=== PATIENT | female | born 1980 | race Caucasian/White ===

== ENCOUNTER 2018-08-29 22:03 | Emergency (ER) | payer BC, OTHER ==
[~2018-08-29] VITALS: Ht 172.7 cm; Wt 149.7 kg
[~2018-08-29 22:03] MED LIST: METFORMIN HCL500 MG PO
[2018-08-29] MEDS ORDERED: DIAZEPAM 2 MG TAB PO ONE (22:30)
[2018-08-29] MEDS ORDERED: KETOROLAC TROMETHAMINE 60 MG/2 ML VIAL IM ONE (22:30)
[2018-08-29] MEDS ORDERED: KETOROLAC TROMETHAMINE 60 MG/2 ML VIAL ONE (22:49)
[2018-08-29] MEDS ORDERED: DIAZEPAM INJ 5 MG/ML 2 ML ONE (22:49)
== END 2018-08-29 23:49 | disposition home or self-care (01) ==
LOC: FSED 22:03
DX: M54.6 Pain in thoracic spine (principal); S29.012A Strain of muscle and tendon of back wall of thorax, initial encounter; G89.29 Other chronic pain; X50.1XXA Overexertion from prolonged static or awkward postures, initial encounter; Y92.003 Bedroom of unspecified non-institutional (private) residence as the place of occurrence of the external cause
CPT/HCPCS: 96372; 99282; J1885; J3360

== ENCOUNTER 2018-09-24 09:27 | Emergency (ER) | payer BC ==
[~2018-09-24] VITALS: Ht 172.7 cm; Wt 149.7 kg
[2018-09-24] MEDS ORDERED: HYDROCODONE/APAP 5MG-325MG TAB PO ONE (10:30)
--- NOTE | 2018-09-24 10:46 | Diagnostic Imaging Report ---
EXAMINATION: CT of the cervical spine HISTORY: Chronic severe neck pain radiating to the upper extremities with numbness, previous injury. COMPARISON: None available TECHNIQUE: Multidetector helical axial images were obtained without contrast from the foramen magnum to T1. The images were reconstructed using bone and soft tissue algorithms and were viewed in axial, sagittal and coronal planes. Dose modulation, iterative reconstruction, and/or weight based adjustment of the mA/kV was utilized to reduce the radiation dose to as low as reasonably achievable. FINDINGS: Alignment: Reversal of the cervical lordosis which may be related to muscle spasm or positional. Soft tissues: Normal Vertebrae: Normal height and density. No acute fracture, infection or neoplasm Degenerative changes: No significant degenerative changes, no disc herniations, no spinal canal or foraminal stenosis. IMPRESSION: 1. No acute cervical spine postraumatic abnormalities. 2. Reversal of the cervical lordosis as detailed above. Note: Acute postraumatic spinal cord, vascular or ligamentous injuries cannot adequately be assessed by CT. Signed by: Dr. Annabella Franco M.D. on 09/24/2018 10:43 AM
[2018-09-24] MEDS ORDERED: DIAZEPAM 5 MG TAB PO ONE (11:20)
[2018-09-24 11:32] VITALS: BP 146/81
== END 2018-09-24 12:06 | disposition home or self-care (01) ==
LOC: ER 09:27
DX: M54.2 Cervicalgia (principal); S16.1XXA Strain of muscle, fascia and tendon at neck level, initial encounter
CPT/HCPCS: 72125; 99283